=== PATIENT | male | born 2000 | race Caucasian/White ===

== ENCOUNTER 2023-08-30 18:15 | Emergency (ER) | payer OTHER, SELFPAY ==
[2023-08-30 18:24] VITALS: BP 133/76; PULSE 89; RESP 18; TEMP 36.4; O2SAT 98; BMI 48.3
== END 2023-08-30 20:18 | disposition home or self-care (01) ==
PROVIDERS: PCP Family Medicine
DX: Z53.21 Procedure and treatment not carried out due to patient leaving prior to being seen by health care provider (principal)